=== PATIENT | male | born 1990 | race Caucasian/White ===

== ENCOUNTER 2021-04-29 18:34 | Emergency (ER) | payer SELFPAY | END 2021-04-29 19:19 | disposition home health service (06) | LOC: MW.ED 18:34 | DX: Z53.21 Procedure and treatment not carried out due to patient leaving prior to being seen by health care provider (principal) ==

== ENCOUNTER 2021-05-16 18:52 | Emergency (ER) | payer OTHER ==
[2021-05-16] MEDS ORDERED: Octyl 2-Cyanoacrylate 1 Tube TOP ONE (21:19)
[2021-05-16] MEDS ORDERED: Diphtheria,Pertussis(Acell),Tetanus Vaccine 0.5 ML Syringe IM ONE (21:19)
--- NOTE | 2021-05-16 21:24 | EDM.PDOC ---
ED HPI GENERAL MEDICAL PROBLEM - General Chief Complaint: Laceration Stated Complaint: LACERATION ON FINGER Time Seen by Provider: 05/16/21 21:18 Source of Information: Reports: Patient History Limitations: Reports: No Limitations - History of Present Illness INITIAL COMMENTS - FREE TEXT/NARRATIVE: HISTORY AND PHYSICAL: History of present illness: Patient denies any fever, chills, headache, change in vision, syncope or near syncope. Denies any chest pain, back pain, shortness of breath or cough. Denies any abdominal pain, nausea, vomiting, diarrhea, constipation or dysuria. Has not noted any blood in urine or stool. Patient has been eating and drinking appropriately. No recent travel or sick contacts. Review of systems: As per history of present illness and below otherwise all systems reviewed and negative. Past medical history: As per history of present illness and as reviewed below otherwise noncontributory. Surgical history: As per history of present illness and as reviewed below otherwise noncontributory. Social history: See social history for further information Family history: As per history of present illness and as reviewed below otherwise non contributory. Physical exam: General: Well developed and well nourished. Alert and orientated x 3. Nontoxic in appearance and in no acute distress. Vital signs are stable and have been reviewed by me. Nursing notes were reviewed. HEENT: Atraumatic, normocephalic, pupils equal and reactive bilaterally, negative for conjunctival pallor or scleral icterus, mucous membranes moist, TMs normal bilaterally, throat clear, neck supple, nontender, trachea midline. No drooling or trismus noted. No meningeal signs. No hot potato voice noted. Lungs: Clear to auscultation bilaterally. No wheezes, rales, or rhonchi. Chest nontender. Normal work of breathing, no accessory muscles used. Heart: S1S2, regular rate and rhythm without overt murmur, gallops, or rubs. No JVD. No peripheral edema Abdomen: Soft, nondistended, nontender. Skin: 1.5cm "C" shaped laceration to left distal pad of index finger. No active bleeding. Remaining skin is intact, warm, dry. No lesions or rashes noted. Hematologic: No petechiae or purpra. Mucosa appropriate color and normal nail bed color and refill. Extremities: See skin for details, moves all extremities per self without difficulty or deficits, negative for cords or calf pain. Neurovascular unremarkable. Neuro: Awake, alert, oriented. Cranial nerves II through XII unremarkable. Cerebellum unremarkable. Motor and sensory unremarkable throughout. Exam nonfocal. Psychiatric: Mood and affect are appropriate. Normal thought process. Answering questions appropriately. Please note that the patient was seen and evaluated during the 2019 SARS-CoV-2 novel coronavirus pandemic period. Community viral transmission is ongoing at time of this encounter and the emergency department is operating under pandemic response procedures. Medical Decision Making: Patient has a laceration to the distal tip of his left finger, does not involve the nailbed. Area was thoroughly cleansed and Dermabond was used to protect the site. His tetanus has been updated. I have talked with the patient about today's findings, in addition to providing specific details for plan of care. Reassessment at the time of disposition demonstrates that the patient is in no acute distress. The patient is stable for discharge, counseling was provided and we discussed in great detail signs and symptoms that would prompt them to return to the Emergency Department. Medication, follow up and supportive care measures were reviewed and discussed. Voices understanding and is agreeable to plan of care. Denies any further questions or concerns at this time. Diagnostics: None Therapeutics: Wound care, Dermabond, Tdap Prescription: None Impression: Laceration Plan: 1. Keep the area clean and dry. Continue to monitor for signs of infection. Please do not peel or pick the glue off, this will fall off on its own. 2. Tylenol and/or ibuprofen as needed for pain management. 3. Please follow-up with your primary care provider for suture removal, or return if you are unable to schedule an appointment. If your symptoms should worsen, new symptoms develop or any of the signs and symptoms we discussed should arise please return to the emergency room or call 911 (if needed). Definitive disposition and diagnosis as appropriate pending reevaluation and review of above. - Related Data Allergies Allergy/AdvReac Type Severity Reaction Status Date / Time No Known Allergies Allergy Verified 05/16/21 19:58 Home Meds: Home Meds . [No Known Home Meds] 05/16/21 [History] Past Medical History - Past Health History Medical/Surgical History: Denies Medical/Surgical History Musculoskeletal History: Reports: Other (See Below) Other Musculoskeletal History: inguinal hernia repair Immunologic History: Reports: AIDS - Past Surgical History HEENT Surgical History: Reports: Adenoidectomy, Oral Surgery, Tonsillectomy Social & Family History - Family History Family Medical History: No Pertinent Family History - Tobacco Use Tobacco Use Status *Q: Current Every Day Tobacco User Years of Tobacco use: 10 Packs/Tins Daily: 1 - Caffeine Use Caffeine Use: Reports: Soda - Recreational Drug Use Recreational Drug Use: Yes Recreational Drug Type: Reports: Amphetamines (Speed), Cocaine, Dilaudid, Fentanyl, Marijuana/Hashish, Methamphetamine, Oxycodone Recreational Drug Use Frequency: Not Used In Over 4 Months ED ROS GENERAL - Review of Systems Review Of Systems: Comprehensive ROS is negative, except as noted in HPI. ED EXAM, SKIN/RASH Exam: See Below (See dictation) ED SKIN PROCEDURES - Laceration/Wound Repair Left index finger Appearance: Subcutaneous, Irregular, Clean Distal NVT: Neuro & Vascular Intact, No Tendon Injury Skin Prep: Chlorhexidine (Hibiciens), Saline Saline Irrigation (cc's): 250 Exploration/Debridement/Repair: Wound Explored, In a Bloodless Field, Explored to Base, No Foreign Material Found Closed with: Dermabond Lac/Wound length In cm: 1.5 Drain Placement: No Sterile Dressing Applied: None Tetanus Status Addressed: Yes Complications: No Course - Vital Signs Last Recorded V/S: Last Vital Signs Temp 97.5 F 05/16/21 19:54 Pulse 90 05/16/21 19:54 Resp 16 05/16/21 19:54 BP 133/63 05/16/21 19:54 Pulse Ox 98 05/16/21 19:54 - Orders/Labs/Meds Orders: Active Orders 24 hr Category Date Time Status Communication Order [RC] STAT Care 05/16/21 21:19 Ordered Vaccine to be Administered/Admin Charge [RC] ASDIRECTED Care 05/16/21 21:19 Ordered Meds: Medications Discontinued Medications Generic Name Dose Route Start Last Admin Trade Name Freq PRN Reason Stop Dose Admin Diphtheria/Tetanus/Acell Pertussis 0.5 ml 05/16/21 21:19 Diphtheria,Pertussis(Acell),Tetanus Vaccine 0.5 Ml Syringe IM 05/16/21 21:20 .ONCE ONE Octyl Cyanoacrylate 1 applic 05/16/21 21:19 Octyl 2-Cyanoacrylate 1 Tube TOP 05/16/21 21:20 ONETIME ONE Departure - Departure Time of Disposition: 21:23 Disposition: Home, Self-Care 01 Clinical Impression: Laceration - Discharge Information Instructions: Laceration Care, Adult, [id number] Referrals: PCP,None [Primary Care Provider] - Additional Instructions: The following information is given to patients seen in the emergency department who are being discharged to home. This information is to outline your options for follow-up care. We provide all patients seen in our emergency department with a follow-up referral. The need for follow-up, as well as the timing and circumstances, are variable depending upon the specifics of your emergency department visit. If you don't have a primary care physician on staff, we will provide you with a referral. We always advise you to contact your personal physician following an emergency department visit to inform them of the circumstance of the visit and for follow-up with them and/or the need for any referrals to a consulting specialist. The emergency department will also refer you to a specialist when appropriate. This referral assures that you have the opportunity for follow-up care with a specialist. All of these measure are taken in an effort to provide you with optimal care, which includes your follow-up. Under all circumstances we always encourage you to contact your private physician who remains a resource for coordinating your care. When calling for follow-up care, please make the office aware that this follow-up is from your recent emergency room visit. If for any reason you are refused follow-up, please contact the [facility] Emergency Department at and asked to speak to the emergency department charge nurse. [facility] [address] [place] [id number] [address] Thank you for choosing the [facility] emergency department in [place] for your medical needs today. It was a pleasure caring for you. Today you were seen in the emergency department for laceration care. 1. Keep the area clean and dry. Continue to monitor for signs of infection. Please do not peel or pick the glue off, this will fall off on its own. 2. Tylenol and/or ibuprofen as needed for pain management. 3. Please follow-up with your primary care provider for suture removal, or return if you are unable to schedule an appointment. If your symptoms should worsen, new symptoms develop or any of the signs and symptoms we discussed should arise please return to the emergency room or call 911 (if needed). Sepsis Event Note (ED) - Evaluation Sepsis Screening Result: No Definite Risk - Focused Exam Vital Signs: Vital Signs Temp Pulse Resp BP Pulse Ox 05/16/21 19:54 97.5 F 90 16 133/63 98 - My Orders Last 24 Hours: My Active Orders 05/16/21 21:19 Communication Order [RC] STAT Vaccine to be Administered/Admin Charge [RC] ASDIRECTED - Assessment/Plan Last 24 Hours: My Active Orders 05/16/21 21:19 Communication Order [RC] STAT Vaccine to be Administered/Admin Charge [RC] ASDIRECTED
== END 2021-05-16 21:50 | disposition home or self-care (01) ==
LOC: MW.ED 18:52
DX: S61.211A Laceration without foreign body of left index finger without damage to nail, initial encounter (principal); Z72.0 Tobacco use; Z23 Encounter for immunization; W26.0XXA Contact with knife, initial encounter
CPT/HCPCS: 12001; 90471; 90715; 99282; A9270

== ENCOUNTER 2021-06-17 23:04 | Emergency (ER) | payer SELFPAY ==
[2021-06-18] MEDS ORDERED: Ibuprofen 600 MG Tab PO ONE (00:03)
[2021-06-18] MEDS ORDERED: Cephalexin 500 MG Cap PO ONE (00:03)
--- NOTE | 2021-06-18 00:04 | EDM.PDOC ---
ED HPI GENERAL MEDICAL PROBLEM - General Chief Complaint: General Stated Complaint: TOOTH PAIN Time Seen by Provider: 06/17/21 23:36 - History of Present Illness INITIAL COMMENTS - FREE TEXT/NARRATIVE: HISTORY AND PHYSICAL: History of present illness: Is a 30-year-old gentleman who presents ER today secondary to dental pain x1 day. Patient has any recent fevers, shakes, chills, nausea, vomit, diarrhea. Patient does not have a dentist here in town. Patient has any swelling. Patient has any difficulty eating opening his mouth. Review of systems: As per history of present illness and below otherwise all systems reviewed and negative. Past medical history: As per history of present illness and as reviewed below otherwise noncontributory. Surgical history: As per history of present illness and as reviewed below otherwise noncontributory. Social history: No reported history of drug abuse. Family history: As per history of present illness and as reviewed below otherwise noncontributory. Physical exam: This patient was seen and evaluated during the 2019 SARS-CoV-2 novel coronavirus pandemic period. Community viral transmission is ongoing at time of this encounter and the emergency department is operating under pandemic response procedures. Constitutional: Patient is oriented to person, place, and time. Appears well- developed and well-nourished. No distress. HEENT: Moist mucous membranes Head: Normocephalic and atraumatic Eyes: Right eye exhibits no discharge. Left eye exhibits no discharge. No scleral icterus Neck: Normal range of motion. No tracheal deviation present. Cardiovascular: Normal rate and regular rhythm. Pulmonary: Effort normal, no respiratory distress. Abdominal: No distention Musculoskeletal: Normal range of motion Neurologic: Alert and oriented to person, place and time. Skin: [place], warm and dry. Psychiatric: Normal mood and affect. Behavior is normal. Judgment and thought content normal. Nursing note and vital signs have been reviewed Patient's ER physical exam is significant for tenderness to palpation to his left upper incisor as well as right upper premolars. No trismus. No significant swelling of his gums or jaw. Assessment and plan: 30-year-old with dental infection and dental pain. Patient be started on Keflex and ibuprofen. Patient will be instructed to follow-up with dentist soon as possible. No evidence of airway compromise or involvement. Reassessment at the time of disposition demonstrates that the patient is in no acute distress. The patient has remained stable throughout the entire ED visit and is without objective evidence for acute process requiring urgent intervention or hospitalization. The patient is stable for discharge, counseling is provided as documented above, discussed symptomatic treatment and specific conditions for return. I have spoken with the patient/caregiver and discussed todays findings, in addition to providing specific details for the plan of care. Questions are answered and there is agreement with the plan. Definitive disposition and diagnosis as appropriate pending reevaluation and review of above. Left Upper Tooth/Teeth Pain Score (Numeric/FACES): 8 - Related Data Allergies Allergy/AdvReac Type Severity Reaction Status Date / Time No Known Allergies Allergy Verified 05/16/21 19:58 Home Meds: Home Meds Ibuprofen 600 mg PO Q6HR PRN #30 tablet 06/18/21 [Rx] cephALEXin [Keflex] 500 mg PO Q8H #30 cap 06/18/21 [Rx] Past Medical History - Past Health History Medical/Surgical History: Denies Medical/Surgical History Musculoskeletal History: Reports: Other (See Below) Other Musculoskeletal History: inguinal hernia repair Immunologic History: Reports: AIDS - Infectious Disease History Infectious Disease History: Reports: None - Past Surgical History HEENT Surgical History: Reports: Adenoidectomy, Oral Surgery, Tonsillectomy Social & Family History - Family History Family Medical History: No Pertinent Family History - Caffeine Use Caffeine Use: Reports: Soda - Recreational Drug Use Recreational Drug Use: No ED ROS GENERAL - Review of Systems Review Of Systems: See Below ED EXAM, GENERAL - Physical Exam Exam: See Below Course - Vital Signs Last Recorded V/S: Last Vital Signs Temp 97.6 F 06/17/21 23:32 Pulse 96 06/17/21 23:32 Resp 18 06/17/21 23:32 BP 129/81 06/17/21 23:32 Pulse Ox 97 06/17/21 23:32 Departure - Departure Time of Disposition: 00:02 Disposition: Home, Self-Care 01 Condition: Good Clinical Impression: Toothache, Dental infection - Discharge Information Instructions: Dental Pain Referrals: PCP,None [Primary Care Provider] - Additional Instructions: You were seen and evaluated in ER today secondary to a tooth ache most likely from a dental infection. Will be started on an antibiotic and ibuprofen help you with your pain. Please make an appointment to follow-up with a dentist as soon as possible. The following information is given to patients seen in the emergency department who are being discharged to home. This information is to outline your options for follow-up care. We provide all patients seen in our emergency department with a follow-up referral. The need for follow-up, as well as the timing and circumstances, are variable depending upon the specifics of your emergency department visit. If you don't have a primary care physician on staff, we will provide you with a referral. We always advise you to contact your personal physician following an emergency department visit to inform them of the circumstance of the visit and for follow-up with them and/or the need for any referrals to a consulting specialist. The emergency department will also refer you to a specialist when appropriate. This referral assures that you have the opportunity for follow-up care with a specialist. All of these measure are taken in an effort to provide you with optimal care, which includes your follow-up. Under all circumstances we always encourage you to contact your private physician who remains a resource for coordinating your care. When calling for follow-up care, please make the office aware that this follow-up is from your recent emergency room visit. If for any reason you are refused follow-up, please contact the [facility] Emergency Department at and asked to speak to the emergency department charge nurse. [facility] - Primary [facility] [address] [place] [id number] [address] Sepsis Event Note (ED) - Focused Exam Vital Signs: Vital Signs Temp Pulse Resp BP Pulse Ox 06/17/21 23:32 97.6 F 96 18 129/81 97
== END 2021-06-18 00:10 | disposition home or self-care (01) ==
LOC: MW.ED 23:04
DX: K04.7 Periapical abscess without sinus (principal)
CPT/HCPCS: 99282; A9270

== ENCOUNTER 2021-08-18 22:15 | Emergency (ER) | payer SELFPAY ==
[2021-08-18] MEDS ORDERED: Lactated Ringers 1,000 ML IV ONE (22:21)
[2021-08-18] MEDS ORDERED: Famotidine 20 MG/2 ML SDV IVPUSH ONE (22:21)
[2021-08-18] MEDS ORDERED: LORazepam 2 MG/ML SDV IVPUSH ONE (22:21)
[2021-08-18] MEDS ORDERED: Sodium Chloride 0.9% 2.5 ML Syringe FLUSH PRN (22:21)
[2021-08-18] MEDS ORDERED: Sodium Chloride 0.9% 10 ML Syringe FLUSH PRN (22:21)
[2021-08-18] MEDS ORDERED: Pantoprazole 40 MG in Sodium Chloride 0.9% 10 ML IVPUSH SCH (22:30)
[2021-08-18 23:38] LABS: BLOOD UREA NITROGEN,BUN 17 mg/dL (7.0-18.0); CARBON DIOXIDE,CO2 25.9 mmol/L (21.0-32.0); CHLORIDE,CL 104 mmol/L (98-107); GLUCOSE RANDOM 101 mg/dL (74-106); LIPASE 134 U/L (73-393); POTASSIUM,K 3.9 mmol/L (3.5-5.1); SODIUM,NA 139 mmol/L (136-148)
== END 2021-08-19 01:30 | disposition home or self-care (01) ==
LOC: MW.ED 22:15
DX: F41.0 Panic disorder [episodic paroxysmal anxiety] (principal); R07.89 Other chest pain
CPT/HCPCS: 36415; 71045; 80053; 80305; 81003; 82550; 82947; 83690; 83880; 84484; 85025; 85610; 93005; 96374; 96375; 99285; C9113; J2060; J3490; J7120

== ENCOUNTER 2021-10-21 17:51 | Emergency (ER) | payer SELFPAY | END 2021-10-21 19:40 | disposition left against medical advice (07) | LOC: MW.ED 17:51 | DX: Z53.21 Procedure and treatment not carried out due to patient leaving prior to being seen by health care provider (principal) | CPT/HCPCS: 93005 ==

== ENCOUNTER 2023-06-15 09:46 | Emergency (ER) | payer SELFPAY | END 2023-06-15 11:00 | disposition home or self-care (01) | LOC: MW.ED 09:46 | DX: R03.0 Elevated blood-pressure reading, without diagnosis of hypertension (principal); Z91.030 Bee allergy status | CPT/HCPCS: 99282; 99283 ==